=== PATIENT | female | born 1970 | race Caucasian/White ===

== ENCOUNTER 2017-08-09 10:10 | Emergency (ER) | payer OTHER ==
[~2017-08-09] VITALS: Ht 157.5 cm; Wt 65.8 kg
[2017-08-09 10:13] VITALS: BP 119/75
--- NOTE | 2017-08-09 10:20 | NUR ---
Patient ambulated to bed 08.
--- NOTE | 2017-08-09 10:33 | NUR ---
Patient being evaluated by Dr. Pennington at bedside.
--- NOTE | 2017-08-09 10:35 | NUR ---
46/F presents to ED with complaints of N/V/D since 0700 this am. Abdominal pain since last night to right side of abd, generalized, 03/17. No vomiting noted while pt in ED. Hx cerebral palsy. Pt is AOX4, slurred speech but this is normal for patient d/t hx. Pt reports having approximately 7 episodes of emesis, denies blood in emesis. Skin warm and dry, normal in color for ethnicity. VSS. Comfort needs met.
[2017-08-09] MEDS ORDERED: ONDANSETRON 4 MG ODT PO ONE (10:50)
[2017-08-09] MEDS ORDERED: DICYCLOMINE 20 MG/2 ML VIAL IM ONE (10:50)
[2017-08-09] MEDS ORDERED: DICYCLOMINE HCL LIQUID 20 MG, ALUMINUM HYD/MAG/SIMETHICONE 30 ML, LIDOCAINE VISCOUS 2% ... PO ONE ×3 (11:00)
--- NOTE | 2017-08-09 11:39 | NUR ---
Pt expresses feeling better, nausea improved, diarrhea improved and abd pain improved. /10.
[2017-08-09 12:47] VITALS: BP 113/71
--- NOTE | 2017-08-09 12:47 | NUR ---
Patient discharged with v/s stable. Written and verbal after care instructions given and explained. Patient alert, oriented and verbalized understanding of instructions. Ambulatory with steady gait. All questions addressed prior to discharge. ID band removed. Patient advised to follow up with PMD. Rx of Zofran ODT 4mg and Bentyl 20mg given. Patient educated on indication of medication including possible reaction and side effects. Work excuse provided until 08/11/17. Opportunity to ask questions provided and answered.
== END 2017-08-09 12:47 | disposition home or self-care (01) ==
LOC: MED 10:10
DX: R11.2 Nausea with vomiting, unspecified (principal); R19.7 Diarrhea, unspecified; R10.9 Unspecified abdominal pain; G80.9 Cerebral palsy, unspecified
CPT/HCPCS: 81002; 81025; 99283; S0119

== ENCOUNTER 2019-09-18 19:09 | Emergency (ER) | payer OTHER ==
[~2019-09-18] VITALS: Ht 157.5 cm; Wt 59.4 kg
[2019-09-18 19:30] VITALS: BP 118/76
--- NOTE | 2019-09-18 19:30 | NUR ---
AMBULATED TO BED 10 FOR TRIAGE. WALKS WITH UNEVEN GAIT DUE TO HX OF CP.
--- NOTE | 2019-09-18 19:35 | NUR ---
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 PT STATES PAIN IS CONSTANT AND FEELS LIKE POKING. PT STATES "I THINK IT'S MY KIDNEY BECAUSE I'VE HAD A KIDNEY INFECTION BEFORE AND THIS IS WHAT IT FEELS LIKE". ALSO REPORTS URINARY BURNING, URGENCY, FREQUENCY AND OLIGURIA STARTING YESTERDAY. DENIES FEVER, NVD. REPORTS CHILLS THIS MORNING. A/O X 4. CALM, COOPERATIVE. SKIN NORMAL FOR ETHNICITY, WARM, DRY. BREATHING EVEN, UNLABORED. PMH-- CP @ RX-- DENIES
--- NOTE | 2019-09-18 19:48 | NUR ---
DR. FELISHA WILSON AT BEDSIDE.
[2019-09-18] MEDS ORDERED: NACL 0.9% 1,000 ML IV SCH (19:50)
[2019-09-18] MEDS ORDERED: KETOROLAC 30 MG/ML VIAL IVP ONE (19:50)
--- NOTE | 2019-09-18 20:25 | NUR ---
MEDICATED WITH 30 MG IVP TORADOL FOR 9 FLANK PAIN. WILL REASSESS.
--- NOTE | 2019-09-18 20:29 | NUR ---
TAKEN TO CT VIA WC.
[2019-09-18 20:38] LABS: BASOPHILS # (AUTO) 0.1 K/uL (0.00-0.22); BASOPHILS % (AUTO) 0.9 % (0.0-2.0); EOSINOPHILS # (AUTO) 0.1 K/uL (0-0.4); EOSINOPHILS % (AUTO) 1.5 % (0.0-4.0); HEMATOCRIT 43.9 % (36-48); HEMOGLOBIN 14.6 g/dL (12.0-16.0); LYMPHOCYTES # (AUTO) 2.2 K/uL (2.5-16.5); LYMPHOCYTES % (AUTO) 34.2 % (20.5-51.1); MEAN CORPUSCULAR HEMOGLOBIN 30 pg (27-31); MEAN CORPUSCULAR HGB CONC 33 g/dL (33-37); MEAN CORPUSCULAR VOLUME 89.3 fL (80-94); MONOCYTES # (AUTO) 0.4 K/uL (0.8-1.0); MONOCYTES % (AUTO) 5.8 % (1.7-9.3); NEUTROPHILS # (AUTO) 3.6 K/uL (1.8-7.7); NEUTROPHILS % (AUTO) 57.6 % (42.2-75.2); PLATELET COUNT (AUTO) 206 K/uL (140-450); RED BLOOD CELL COUNT(AUTO) 4.92 MIL/uL (4.20-5.40); WHITE BLOOD COUNT (AUTO) 6.3 K/uL (4.8-10.8)
--- NOTE | 2019-09-18 20:40 | NUR ---
RETURN FROM CT VIA . IVF RESUMED.
--- NOTE | 2019-09-18 20:45 | NUR ---
REPORTS SOME PAIN RELIEF. 03/17. PT STATES IS TOLERABLE AT THIS TIME.
[2019-09-18 20:48] LABS: CARBON DIOXIDE 28.9 mmol/L (21-32); CREATININE 0.8 mg/dL (0.6-1.3); POTASSIUM 3.9 mmol/L (3.5-5.1)
[2019-09-18 20:53] LABS: ALBUMIN 3.7 g/dL (3.4-5.0); TOTAL BILIRUBIN 0.4 mg/dL (0.0-1.0)
[2019-09-18 21:33] LABS: APPEARANCE,URINE CLEAR (CLEAR); BILIRUBIN,URINE NEGATIVE (NEGATIVE); BLOOD, URINE NEGATIVE (NEGATIVE); COLOR,URINE YELLOW (YELLOW); LEUKOCYTE ESTERASE ,URINE NEGATIVE (NEGATIVE); NITRITE, URINE NEGATIVE (NEGATIVE); UGLUCOSE NEGATIVE (NEGATIVE)
[2019-09-18 21:36] VITALS: BP 121/73
--- NOTE | 2019-09-18 21:36 | NUR ---
Patient discharged with v/s stable. Written and verbal after care instructions given and explained. Patient alert, oriented and verbalized understanding of instructions. Ambulatory with steady gait. All questions addressed prior to discharge. ID band removed. Patient advised to follow up with PMD. Rx of Cipro, Motrin and [place] given. Patient educated on indication of medication including possible reaction and side effects. Opportunity to ask questions provided and answered.
== END 2019-09-18 21:36 | disposition home or self-care (01) ==
LOC: MED 19:09
DX: R10.9 Unspecified abdominal pain (principal); R30.0 Dysuria
CPT/HCPCS: 36415; 74176; 80053; 81003; 81025; 83690; 85025; 96374; 99284; J1885; J7030; 81002

== ENCOUNTER 2020-10-25 20:27 | Emergency (ER) | payer OTHER ==
[~2020-10-25] VITALS: Ht 157.5 cm; Wt 59.9 kg
[2020-10-25 20:32] VITALS: BP 130/77
--- NOTE | 2020-10-25 20:32 | NUR ---
to bed ambulatory
[2020-10-25] MEDS ORDERED: LIDOCAINE MPF 1% 10 MG/ML VIAL INJ ONE (20:55)
[2020-10-25] MEDS ORDERED: ONDANSETRON 4 MG ODT PO ONE (20:55)
[2020-10-25] MEDS ORDERED: cefTRIAXone 1,000 MG in LIDOCAINE MPF 1% 2.1 ML IM ONE (20:55)
--- NOTE | 2020-10-25 21:11 | NUR ---
URINE SPECIMEN COLLECTED AND WALKED TO LAB.
[2020-10-25 21:14] LABS: APPEARANCE,URINE CLEAR (CLEAR); BILIRUBIN,URINE NEGATIVE (NEGATIVE); BLOOD, URINE TRACE-I (NEGATIVE); COLOR,URINE YELLOW (YELLOW); LEUKOCYTE ESTERASE ,URINE TRACE (NEGATIVE); NITRITE, URINE NEGATIVE (NEGATIVE); UGLUCOSE NEGATIVE (NEGATIVE)
[2020-10-25] MEDS ORDERED: KETOROLAC 30 MG/ML VIAL IVP ONE (21:20)
[2020-10-25] MEDS ORDERED: cefTRIAXone 1,000 MG VIAL ONE (21:24)
--- NOTE | 2020-10-25 21:41 | NUR ---
Pt c/o RLQ abd pain radiating to other quadrants, as well as generalized body pain x3 days, with dysuria x1 day. States only hx is cerebral palsy. A/Ox4, ambulatory with steady gait.
[2020-10-25 22:21] LABS: RBC,URINE 0-5 /HPF (0-5); WBC,URINE 0-5 /HPF (0-5)
[2020-10-25 22:56] VITALS: BP 130/77
--- NOTE | 2020-10-25 22:56 | NUR ---
Patient discharged with v/s stable. Written and verbal after care instructions given and explained. Patient alert, oriented and verbalized understanding of instructions. Ambulatory with steady gait. All questions addressed prior to discharge. ID band removed. Patient advised to follow up with PMD. Rx of Pyridium, Motrin, and Bactrim given. Patient educated on indication of medication including possible reaction and side effects. Opportunity to ask questions provided and answered. IV removed and pressure applied.
--- NOTE | 2020-10-26 22:24 | NUR ---
LATE ENTRY- Normal saline 0.9% IV fluids discontinued at 2200
== END 2020-10-25 22:56 | disposition home or self-care (01) ==
LOC: MED 20:27
DX: N39.0 Urinary tract infection, site not specified (principal)
CPT/HCPCS: 81001; 96365; 96375; 99284; J0696; J1885; J7060; Q0162

== ENCOUNTER 2021-12-27 18:14 | Emergency (ER) | payer OTHER ==
[~2021-12-27] VITALS: Ht 157.5 cm; Wt 70.0 kg
[2021-12-27 18:19] VITALS: BP 146/71
--- NOTE | 2021-12-27 19:03 | NUR ---
PT AMBULATED TO BED 1
--- NOTE | 2021-12-27 19:25 | NUR ---
51 Y/O F, BIBS, C/O BILATERAL TINNITUS X1.5WKS. PATIENT PRESENTS TO ED WITH NO LOSS OF BALANCE, HEARING INTACT BUT PT CLAIMS IS DIMINISHED, AND NO REDNESS OR SWELLING. PT STATES THE RINGING IS AFFECTINGHER HEARING, IS CONSTANT, AND SOMETIMES FEELS LIGHT HEADED. PT STATES YESTERDAY SHE WOKE UP TO LEFT EYE SWELLING WITH NO REDNESS OR DRAINAGE. DENIES N/V/D; SKIN IS PINK/WARM/DRY; AAOX4 WITH EVEN AND STEADY GAIT; LUNGS CLEAR BL; HR EVEN AND REGULAR; PT DENIES ANY FEVER, CP, SOB, OR COUGH AT THIS TIME; PATIENT STATES PAIN OF 0/10 AT THIS TIME; VSS; PATIENT POSITIONED FOR COMFORT; HOB ELEVATED; BEDRAILS UP X1; BED DOWN. ER MD MADE AWARE OF PT STATUS. HX: YOVANNY KAUR
[2021-12-27] MEDS ORDERED: MECL-303 PO (21:25)
[2021-12-27 21:32] VITALS: BP 128/54
--- NOTE | 2021-12-27 21:33 | NUR ---
Patient discharged with v/s stable. Written and verbal after care instructions given and explained. Patient alert, oriented and verbalized understanding of instructions. Ambulatory with to car. All questions addressed prior to discharge. ID band removed. Patient advised to follow up with PMD. Rx of MECLIZINE given. Patient educated on indication of medication including possible reaction and side effects. Opportunity to ask questions provided and answered. A/OX4, VSS, AMBULATORY, UNLABORED BREATHING, AND CALM DEMEANOR.
== END 2021-12-27 21:33 | disposition home or self-care (01) ==
LOC: MED 18:14
DX: H93.13 Tinnitus, bilateral (principal); Z79.899 Other long term (current) drug therapy
CPT/HCPCS: 70450; 99284

== ENCOUNTER 2024-06-19 18:11 | Emergency (ER) | payer OTHER ==
[~2024-06-19] VITALS: Ht 157.5 cm; Wt 68.0 kg
[~2024-06-19 18:11] MED LIST: MECL-303 PO
[2024-06-19 18:14] VITALS: BP 141/100; PULSE 73; RESP 16; TEMP 97.4; O2SAT 99
[2024-06-19] MEDS: KETOROLAC 30 MG/ML VIAL IM ONE (19:03)
[2024-06-19] MEDS ORDERED: IBUP-2213 PO (20:20)
[2024-06-19 20:28] VITALS: BP 130/60; PULSE 74; RESP 16; TEMP 97.4; O2SAT 99
== END 2024-06-19 20:28 | disposition home or self-care (01) ==
LOC: MED 18:11
DX: S39.012A Strain of muscle, fascia and tendon of lower back, initial encounter (principal); S16.1XXA Strain of muscle, fascia and tendon at neck level, initial encounter; I10 Essential (primary) hypertension; M19.90 Unspecified osteoarthritis, unspecified site; R07.89 Other chest pain; M54.2 Cervicalgia; Z79.899 Other long term (current) drug therapy; V49.49XA Driver injured in collision with other motor vehicles in traffic accident, initial encounter; Y93.89 Activity, other specified; Y92.89 Other specified places as the place of occurrence of the external cause; Y99.8 Other external cause status
CPT/HCPCS: 71045; 96372; 99283; J1885; Q0092